=== PATIENT | male | born 1950 | race Caucasian/White ===

== ENCOUNTER 2016-08-18 09:37 | Inpatient (IN) | payer OTHER ==
[2016-08-12 10:13] LABS: HEMATOCRIT 42.3 % (40.0-51.0); HEMOGLOBIN 15.2 g/dL (13.6-17.8)
[2016-08-12 10:26] LABS: BUN (BLOOD UREA NITROGEN) 13 MG/DL (6-23); CALCIUM, SERUM 9.5 MG/DL (8.5-10.4); CHLORIDE, SERUM 110 MMOL/L (96-112); CO2 (CARBON DIOXIDE) 26 MMOL/L (24-34); CREATININE 1.39 MG/DL (0.70-1.30); GFR AFRICAN AMERICAN 60 ML/MIN (>=60); GFR NON AFRICAN AMERICAN 52 ML/MIN (>=60); GLUCOSE, SERUM 114 MG/DL (60-99); POTASSIUM, SERUM 3.8 MMOL/L (3.5-5.3); SODIUM, SERUM 144 MMOL/L (135-148)
--- NOTE | ~2016-08-18 | OP ---
Record Of Operation [facility] [address] [place]. [address] NAME: KATHY MALONE : 48 STATUS : ADM IN [facility]#: [id number] AGE: 66 ADM/REG DATE : 08/18/16 MR#: [id number] REPORT SERV DATE: 08/18/16 DICTATED BY: TOMER CANAS DATE: 08/18/16 REPORT STATUS : Draft TRANSCRIBED BY: MODL DATE: 08/18/16 DATE OF PROCEDURE: 08/18/2016 PREOPERATIVE DIAGNOSIS: Colovesical fistula. POSTOPERATIVE DIAGNOSIS: Colovesical fistula. PROCEDURE PERFORMED: Cystoscopy with left retrograde pyelogram and left ureteral catheterization. SURGEON: Tomer Canas M.D. ANESTHESIA: General. COMPLICATIONS: None. DRAINS: 1. A 5-Polish open-ended catheter, left ureter. 2. Beal catheter. INDICATION: Mr. Malone is a 66-year-old who presented with acute onset pneumaturia. CT scan showed gas in the bladder and sigmoid colon adherent to the posterior wall/dome of the bladder, this was consistent with colovesical fistula secondary to diverticulitis. He is having a sigmoid colectomy by Dr. Escoto. I am placing a left ureteral catheter to identify the ureter and to confirm site of fistula and exclude bladder tumor. TECHNIQUE: Informed consent was obtained, antibiotics were given preop consisting of Ancef and Flagyl. He was brought to the operating room. General endotracheal anesthesia was administered. The abdomen, genitalia, perineum, and perirectal area were shaved, prepped, and draped in the low lithotomy position. I started the procedure. Rigid cystoscopy was performed. The urethra was normal. Prostate showed a high bladder neck, but no real obstruction. In the bladder, there was minor sediment. The clear efflux of urine was seen on the right and the left. The fistula site was readily visible with heaped up erythematous mucosa at the midline upper posterior wall. This appeared inflammatory. There was nothing suspicious for urothelial malignancy. I catheterized the left ureter past 25 cm. Retrograde pyelogram showed no hydronephrosis. Left the opening catheter in place. I removed the cystoscope and placed an 18-Polish Beal catheter draining the bladder. The stent can be removed at the end of the general surgery portion of the procedure. I am available to help with bladder repair if that is necessary. A Beal catheter should leave for four-five days postop. [facility]/ZEINA Record Of [place] [address] [place]. [address] NAME: KATHY MALONE : 48 STATUS : ADM IN PAT#: [id number] AGE: 66 ADM/REG DATE : 08/18/16 MR#: [id number] REPORT SERV DATE: 08/18/16 DICTATED BY: TOMER CANAS DATE: 08/18/16 REPORT STATUS : Draft TRANSCRIBED BY: ZEINA DATE: 08/18/16 Tomer Canas M.D. / [id number] CC: Sergey Escoto M.D.
--- NOTE | ~2016-08-18 | OP ---
Record Of Operation [facility] [address] [place]. [address] NAME: KATHY MALONE : 48 STATUS : ADM IN [facility]#: [id number] AGE: 66 ADM/REG DATE : 08/18/16 MR#: [id number] REPORT SERV DATE: 08/19/16 DICTATED BY: SERGEY ALBARRAN DATE: 08/18/16 REPORT STATUS : Draft TRANSCRIBED BY: MODFortino DATE: 08/18/16 DATE OF PROCEDURE: 08/18/2016 PREOPERATIVE DIAGNOSES: 1. Colovesical fistula. 2. Hypertension. POSTOPERATIVE DIAGNOSES: Colovesical fistula and hypertension secondary to previous diverticular disease. PROCEDURES: 1. Exploratory laparotomy. 2. Sigmoid colectomy with colorectal anastomosis. 3. Closure of enterovesical fistula. 4. Previous cysto and stent placement under the direction of Dr. Nolan preoperatively. OPERATIVE TECHNIQUE: The patient was brought to the operating room and placed on the table in supine position. He had preoperative antibiotics. He had a preoperative bowel prep. He underwent general endotracheal anesthesia and had sequential hose in place, and a time-out was completed. He was placed in lithotomy position. Dr. Nolan at this time performed a cystostomy and left ureteral stent placement. The patient was noted to have a probable fistula at the dome of the bladder. At this time, the patient was prepped and draped in sterile fashion for an exploratory laparotomy, and a time-out was once again completed. The abdomen was entered through a midline incision and exploration revealed a focal area of clinical diverticulitis with a fistula through the diverticulum to a small area of inflammation on the dome of the left bladder, that was clearly visible. The scissors were used to mobilize the anterior sigmoid colon off the bladder and at this point, the colon was mobilized along the white line of [place] laterally toward the midline. The patient's sigmoid colon was then divided with a linear stapler approximately 3 cm proximal to the fistula site. The intervening segment of mesentery was then scored and mobilized toward the midline just above the peritoneal reflection and the linear stapler was once again used to divide the bowel in the pelvis after a window was created in the mesenteric aspect of the bowel. It was then divided and the intervening mesentery was clamped, divided, and ligated with the LigaSure. The stent was not visualized during this portion of the procedure and division was high as the bowel had been examined and there was no evidence for malignancy intraoperatively. At this point, the sizer was placed in the rectum and a 34 mm sizer passed easily. The bowel was prepared on both limbs proximally and distally. The suture device was used on the proximal end. A 34 anvil was then placed and secured over the anvil shaft. The stapler was then brought into the rectal stump and passed just beneath the previous staple line in the middle. The stapler anvil was then placed after it was positioned properly and it was fired and held and removed. With testing of the bowel under water, there was a small area of minimal bubbling on anterior surface of the anastomosis. The entire anterior surface was then reinforced with interrupted seromuscular 3-0 Vicryl sutures. A leak test once again was performed with no evidence of any leak. The anastomosis was widely patent and without tension. The abdomen was then irrigated. There was no evidence of any bleeding or other visual abnormalities. The patient's fistula site Record Of [address] [address] NAME: KATHY MALONE : 48 STATUS : ADM IN [facility]#: [id number] AGE: 66 ADM/REG DATE : 08/18/16 MR#: [id number] REPORT SERV DATE: 08/19/16 DICTATED BY: SERGEY ALBARRAN DATE: 08/18/16 REPORT STATUS : Draft TRANSCRIBED BY: ZEINA DATE: 08/18/16 was identified and it was carefully dissected to identify the area of inflammation. It was oversewn with three interrupted Vicryl sutures without tension with a small piece of fat being placed over the closure and secured. The abdomen was then thoroughly irrigated. There was no evidence of any other abnormalities. The anterior fascia was then reapproximated using a running looped PDS suture. The subcutaneous tissues were thoroughly irrigated. A [place] drain was placed. Mariae Lena were applied. He was extubated and taken to the recovery room in stable condition. All sponge and needle counts reported correct. /ZEINA Sergey Albarran M.D. / [id number] CC: Jennfier Morocho DO
--- NOTE | ~2016-08-18 | DS ---
Discharge Summary [facility] [address] [facility] [place]. [address] NAME: KATHY MALONE : 48 STATUS : DIS IN PAT#: [id number] AGE: 66 ADM/REG DATE : 08/18/16 MR#: [id number] REPORT SERV DATE: 09/01/16 DICTATED BY: SERGEY ALBARRAN DATE: 08/31/16 REPORT STATUS : Draft TRANSCRIBED BY: ZEINA DATE: 08/31/16 Data Collection from hospitalization DISCHARGE DIAGNOSES: 1. Colovesical fistula, status post sigmoid colectomy with bladder repair. 2. Hypertension. 3. Hypothyroidism. CONSULTATIONS: Vinnie Nolan M.D. PROCEDURES PERFORMED: 1. Cystoscopy with left retrograde pyelogram and left ureteral catheterization on 08/18/2016. 2. Exploratory laparotomy, sigmoid colectomy with colorectal anastomosis, closure of enterovesical fistula, previous cysto and stent placement under the direction of Dr. Nolan preoperatively on 08/18/2016. PATHOLOGY: Sigmoid colon "colovesical fistula" resection - diverticulosis with diverticulitis. No malignancy seen. Colon "ring" reanastomosis - essentially within normal limits. MEDICATIONS: Norvasc 10 mg daily, one daily as instructed, [place] 5/325 one tablet every six hours as needed, levothyroxine 25 mcg daily, and Naprosyn 500 mg every 12 hours. CONDITION AT DISCHARGE: Stable. DISPOSITION: The patient was discharged home on a full liquid diet, which would be advanced to regular in 48 hours and activities as instructed. He would follow up with me on 08/31/2016. HOSPITAL COURSE: This is a 66-year-old man who has had left lower quadrant pain. He presented with passage of air and debris in his urine. CT scan had shown mass at the dome of the bladder with apparent fistula between the bladder and sigmoid colon. He has bilateral fat containing inguinal hernias. He had developed the acute onset of pneumaturia. Treatment options were discussed and it was elected to proceed with surgical intervention. He was admitted to the hospital at this time for further evaluation and treatment. Upon admission, he was seen by Dr. Vinnie Nolan. CT scan had shown gas in the bladder and sigmoid colon adherent to the posterior wall/dome of the bladder, which was consistent with colovesical fistula secondary to diverticulitis. He was going to undergo sigmoid colectomy. Dr. Nolan was going to place a left ureteral catheter to identify the ureter and to locate the site of the fistula and to exclude bladder tumor. The patient to the operating room where he underwent the above-mentioned procedure by myself and Dr. Vinnie Nolan. He tolerated this well, and there were no complications. On postop day #1, he did have some incisional pain with movement. His dressings were clean, dry, and intact. Beal catheter was in place. On 08/20/2016, he was progressing satisfactorily. He was changed to oral pain medications. IV fluids were decreased. Beal catheter was in place. He was started on clear liquids. He had good urine output. He had some abdominal distention and a KUB was Discharge Summary [address] [address] NAME: KATHY MALONE : 48 STATUS : DIS IN PAT#: [id number] AGE: 66 ADM/REG DATE : 08/18/16 MR#: [id number] REPORT SERV DATE: 09/01/16 DICTATED BY: SERGEY ALBARRAN DATE: 08/31/16 REPORT STATUS : Draft TRANSCRIBED BY: MODFortino DATE: 08/31/16 performed, findings were most suggestive of postoperative ileus with most prominent portion of the GI tract being the colon from cecum to the transverse colon. Discharge planning was performed. He had been held n.p.o. On 08/22/2016, discharge instructions were given. Due to his improved and stable condition, he was discharged home with the above-stated instructions. Information collected by: Sandra Tam I submit the above information as my discharge summary. TG/MODL Sergey Albarran M.D. / [id number] CC: Jennifer Morocho TIUNDRA LESHAUN John C House, M.D.
[~2016-08-18 09:37] MED LIST: HARD NAILS PO; LEVOTHYROXIN25 MCG PO; NAP500 PO; NORCO1 TA1 PO; NORV10 PO
[2016-08-19 05:49] LABS: BASOPHILS 0.1 %; BASOPHILS ABSOLUTE 0.01 10/3/uL (0.0-0.16); EOSINOPHILS 0 %; HEMATOCRIT 38.8 % (40.0-51.0); HEMOGLOBIN 13.7 g/dL (13.6-17.8); IMMATURE GRANULOCYTES 0.3 %; IMMATURE GRANULOCYTES ABSOLUTE 0.04 10/3/uL (0.0-0.11); LYMPHOCYTES 5.3 %; LYMPHOCYTES ABSOLUTE 0.78 10/3/uL (0.67-4.30); MEAN CORPUS HGB CONC 35.3 g/dL (32.0-36.0); MEAN CORPUSCULAR HEMOGLOB 30.3 pg (26.0-34.0); MEAN CORPUSCULAR VOLUME 85.8 fL (80-100); MEAN PLATELET VOLUME 9.9 fL (9.2-13.0); MONOCYTES 7.9 %; MONOCYTES ABSOLUTE 1.17 10/3/uL (0.21-1.20); NEUTROPHILS 86.4 %; NEUTROPHILS ABSOLUTE 12.76 10/3/uL (2.02-8.40); PLATELET COUNT 183 10/3/uL (150-400); RBC DISTRIBUTION WIDTH 14.1 % (12.0-16.0); RED CELL COUNT 4.52 10/6/uL (4.7-6.1); WHITE BLOOD CELLS 14.8 10/3/uL (4.5-10.5)
[2016-08-19 05:54] LABS: MANUAL DIFF NO %
[2016-08-19 06:19] LABS: CHLORIDE, SERUM 103 MMOL/L (96-112); CO2 (CARBON DIOXIDE) 25 MMOL/L (24-34); CREATININE 1.23 MG/DL (0.70-1.30); GFR AFRICAN AMERICAN 70 ML/MIN (>=60); GFR NON AFRICAN AMERICAN 60 ML/MIN (>=60); POTASSIUM, SERUM 3.9 MMOL/L (3.5-5.3)
[2016-08-19 06:20] LABS: BUN (BLOOD UREA NITROGEN) 9 MG/DL (6-23); CALCIUM, SERUM 8.5 MG/DL (8.5-10.4); GLUCOSE, SERUM 147 MG/DL (60-99); SODIUM, SERUM 137 MMOL/L (135-148)
[2016-08-20 05:57] LABS: HEMATOCRIT 37.1 % (40.0-51.0); MEAN PLATELET VOLUME 9.4 fL (9.2-13.0); PLATELET COUNT 201 10/3/uL (150-400); RBC DISTRIBUTION WIDTH 14.3 % (12.0-16.0); RED CELL COUNT 4.19 10/6/uL (4.7-6.1); WHITE BLOOD CELLS 8.9 10/3/uL (4.5-10.5)
[2016-08-20 06:12] LABS: BUN (BLOOD UREA NITROGEN) 7 MG/DL (6-23); CALCIUM, SERUM 8.3 MG/DL (8.5-10.4); CHLORIDE, SERUM 108 MMOL/L (96-112); CO2 (CARBON DIOXIDE) 25 MMOL/L (24-34); CREATININE 1.08 MG/DL (0.70-1.30); GFR AFRICAN AMERICAN 82 ML/MIN (>=60); GFR NON AFRICAN AMERICAN 71 ML/MIN (>=60); GLUCOSE, SERUM 118 MG/DL (60-99); POTASSIUM, SERUM 4.1 MMOL/L (3.5-5.3); SODIUM, SERUM 141 MMOL/L (135-148)
[2016-08-20 06:13] LABS: MANUAL DIFF YES %; MEAN CORPUSCULAR VOLUME 88.5 fL (80-100)
[2016-08-20 07:41] LABS: BAND NEUTROPHILS 3 %; EOSINOPHILS 5 %; EOSINOPHILS ABSOLUTE (CALC) 0.45 10/3/uL (0.0-0.53); LYMPHOCYTES 18 %; MONOCYTES 11 %; MONOCYTES ABSOLUTE (CALC) 0.98 10/3/uL (0.21-1.20); NEUTROPHILS ABSOLUTE (CALC) 5.87 10/3/uL (2.02-8.40); PLATELET ESTIMATE ADQ (ADEQUATE); SEGMENTED NEUTROPHIL (0) 63 %; TOTAL NUCLEATED CELLS 100; TOXIC GRANULATION SLT; VACUOLATED NEUTROPHILES OCC
[2016-08-21 07:00] LABS: BASOPHILS 0.2 %; BASOPHILS ABSOLUTE 0.02 10/3/uL (0.0-0.16); EOSINOPHILS 2.1 %; EOSINOPHILS ABSOLUTE 0.18 10/3/uL (0.0-0.53); HEMATOCRIT 40.3 % (40.0-51.0); HEMOGLOBIN 13.8 g/dL (13.6-17.8); IMMATURE GRANULOCYTES 0.5 %; IMMATURE GRANULOCYTES ABSOLUTE 0.04 10/3/uL (0.0-0.11); LYMPHOCYTES 20.7 %; LYMPHOCYTES ABSOLUTE 1.75 10/3/uL (0.67-4.30); MEAN CORPUS HGB CONC 34.2 g/dL (32.0-36.0); MEAN CORPUSCULAR HEMOGLOB 30.1 pg (26.0-34.0); MEAN PLATELET VOLUME 8.9 fL (9.2-13.0); MONOCYTES 10.3 %; MONOCYTES ABSOLUTE 0.87 10/3/uL (0.21-1.20); NEUTROPHILS 66.2 %; NEUTROPHILS ABSOLUTE 5.58 10/3/uL (2.02-8.40); PLATELET COUNT 222 10/3/uL (150-400); RBC DISTRIBUTION WIDTH 14.1 % (12.0-16.0); RED CELL COUNT 4.58 10/6/uL (4.7-6.1); WHITE BLOOD CELLS 8.4 10/3/uL (4.5-10.5)
[2016-08-21 07:10] LABS: MANUAL DIFF NO %
[2016-08-21 07:15] LABS: BUN (BLOOD UREA NITROGEN) 6 MG/DL (6-23); CALCIUM, SERUM 9.4 MG/DL (8.5-10.4); CHLORIDE, SERUM 104 MMOL/L (96-112); CO2 (CARBON DIOXIDE) 27 MMOL/L (24-34); CREATININE 1.16 MG/DL (0.70-1.30); GFR AFRICAN AMERICAN 75 ML/MIN (>=60); GFR NON AFRICAN AMERICAN 65 ML/MIN (>=60); GLUCOSE, SERUM 108 MG/DL (60-99); POTASSIUM, SERUM 3.9 MMOL/L (3.5-5.3); SODIUM, SERUM 140 MMOL/L (135-148)
[2016-08-22 05:25] LABS: BASOPHILS 0.4 %; BASOPHILS ABSOLUTE 0.03 10/3/uL (0.0-0.16); EOSINOPHILS 5.2 %; EOSINOPHILS ABSOLUTE 0.38 10/3/uL (0.0-0.53); HEMATOCRIT 40.3 % (40.0-51.0); IMMATURE GRANULOCYTES 0.3 %; IMMATURE GRANULOCYTES ABSOLUTE 0.02 10/3/uL (0.0-0.11); LYMPHOCYTES 25.6 %; LYMPHOCYTES ABSOLUTE 1.86 10/3/uL (0.67-4.30); MEAN CORPUS HGB CONC 34.7 g/dL (32.0-36.0); MEAN CORPUSCULAR HEMOGLOB 30.3 pg (26.0-34.0); MEAN CORPUSCULAR VOLUME 87.2 fL (80-100); MEAN PLATELET VOLUME 9.2 fL (9.2-13.0); MONOCYTES 10.9 %; MONOCYTES ABSOLUTE 0.79 10/3/uL (0.21-1.20); NEUTROPHILS 57.6 %; NEUTROPHILS ABSOLUTE 4.19 10/3/uL (2.02-8.40); PLATELET COUNT 235 10/3/uL (150-400); RBC DISTRIBUTION WIDTH 14.1 % (12.0-16.0); RED CELL COUNT 4.62 10/6/uL (4.7-6.1); WHITE BLOOD CELLS 7.3 10/3/uL (4.5-10.5)
[2016-08-22 05:32] LABS: A/G RATIO 0.6 (0.7-1.9); ALBUMIN 2.8 G/DL (3.5-5.0); ALKALINE PHOSPHATASE 62 U/L (45-117); BUN (BLOOD UREA NITROGEN) 7 MG/DL (6-23); CHLORIDE, SERUM 106 MMOL/L (96-112); CO2 (CARBON DIOXIDE) 26 MMOL/L (24-34); CREATININE 1.09 MG/DL (0.70-1.30); GFR AFRICAN AMERICAN 81 ML/MIN (>=60); GFR NON AFRICAN AMERICAN 70 ML/MIN (>=60); GLOBULIN 4.6 G/DL (2.5-4.1); GLUCOSE, SERUM 103 MG/DL (60-99); SGOT(AST) 22 U/L (5-40); SGPT(ALT) 23 U/L (5-65); SODIUM, SERUM 142 MMOL/L (135-148); TOTAL BILIRUBIN 0.4 MG/DL (0-1.2); TOTAL PROTEIN 7.4 G/DL (6.0-8.5)
[2016-08-22 05:49] LABS: MANUAL DIFF NO %
[2016-08-22] MEDS ORDERED: NORCO1 TA1 PO (08:57)
== END 2016-08-22 11:53 | disposition home or self-care (01) | DRG 330 ==
LOC: SDC/OF 09:37 → PACU 15:59 → 5SO 19:07
PROVIDERS: Surgery; Urology
PROC: 0T9B80Z Drainage of Bladder with Drainage Device, Via Natural or Artificial Opening Endoscopic (ICD-10-PCS; 2016-08-18)
PROC: 3E0T3CZ (ICD-10-PCS; 2016-08-18)
PROC: 0DBN0ZZ Excision of Sigmoid Colon, Open Approach (ICD-10-PCS; principal; 2016-08-18 12:45)
PROC: BT1F1ZZ Fluoroscopy of Left Kidney, Ureter and Bladder using Low Osmolar Contrast (ICD-10-PCS; 2016-08-18 12:45)
DX: K63.2 Fistula of intestine (principal); N32.1 Vesicointestinal fistula; I10 Essential (primary) hypertension; E03.9 Hypothyroidism, unspecified; Z79.899 Other long term (current) drug therapy; Z80.8 Family history of malignant neoplasm of other organs or systems; Z82.49 Family history of ischemic heart disease and other diseases of the circulatory system; F41.9 Anxiety disorder, unspecified
CPT/HCPCS: 74000; 80048; 80053; 82962; 83735; 85014; 85018; 85025; 88307; 93005; A9270-GY; C1758; C1769; J0690; J1170; J1956; J2250; J2405; J2710; J2795; J3010; P9045; Q9967